=== PATIENT | male | born 1975 | race Two or more races ===

== ENCOUNTER 2020-07-26 11:48 | Emergency (ER) | payer SELFPAY ==
[~2020-07-26] VITALS: Ht 170.2 cm; Wt 68.5 kg
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
[2020-07-26 11:55] VITALS: BP 103/65
--- NOTE | 2020-07-26 11:55 | NUR ---
Note sharon in EDM - 07/26/20 at 1156 by JACOB ED Nurse Note: patient from home and brought in by [facility]29 due to alcohol intoxication and left arm pain. Pt drank whiskey today. AAO x4, ambulatory with non labored breathing.
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
[2020-07-26 12:50] VITALS: BP 137/81
--- NOTE | 2020-07-26 12:50 | NUR ---
ER DISCHARGE NOTE: Patient is cleared to be discharged per ERMD, pt is aox4, on room air, with stable vital signs. pt was given dc and prescription instructions, pt was able to verbalize understanding, pt id band removed. pt is able to ambulate with steady gait. pt took all belongings. Homeless log and mini cog completed. Food and clothes provided.
== END 2020-07-26 12:50 | disposition home or self-care (01) ==
LOC: EDBD 11:48 → EMR 12:48
DX: F10.10 Alcohol abuse, uncomplicated (principal); S42.302A Unspecified fracture of shaft of humerus, left arm, initial encounter for closed fracture; I10 Essential (primary) hypertension; E11.9 Type 2 diabetes mellitus without complications; G40.909 Epilepsy, unspecified, not intractable, without status epilepticus; V03.90XA Pedestrian on foot injured in collision with car, pick-up truck or van, unspecified whether traffic or nontraffic accident, initial encounter; Y93.9 Activity, unspecified; Y92.410 Unspecified street and highway as the place of occurrence of the external cause
CPT/HCPCS: 99281